=== PATIENT | female | born 1970 | race Caucasian/White ===

== ENCOUNTER → 2023-11-13 | Outpatient (CLI) | payer OTHER ==
[~2023-11-13] MED LIST: EQL50TAB2 PO; OXYC1TAB23 PO; TELM1TAB33 PO; VITA100093 PO; VITMTA PO
== END ==
LOC: M SOG 07:54
PROVIDERS: ATTEND Physician Assistant
DX: M79.661 Pain in right lower leg (principal); S82.844A Nondisplaced bimalleolar fracture of right lower leg, initial encounter for closed fracture; X58.XXXA Exposure to other specified factors, initial encounter; Y92.9 Unspecified place or not applicable

== ENCOUNTER 2023-11-16 10:47 | Day surgery (SDC) | payer OTHER ==
[~2023-11-16] VITALS: Ht 162.6 cm; Wt 65.8 kg
[~2023-11-16 10:47] MED LIST changes: +ceFAZolin SOD 2 GM in IV 1 EA IV ONE
[2023-11-16] MEDS ORDERED: LR 1,000 ML IV SCH ×2 (11:00→17:15)
[2023-11-16] MEDS ORDERED: fentaNYL 100 MCG/2 ML INJECTION As Ordered ONE ×2 (13:14→16:23)
[2023-11-16] MEDS ORDERED: SUGAMMADEX SODIUM 500 MG/5 ML VIAL (BRIDION) As Ordered ONE (13:15)
[2023-11-16] MEDS ORDERED: propofoL 200 MG/20 ML VIAL As Ordered ONE (13:15)
[2023-11-16] MEDS ORDERED: KETOROLAC 60MG 2ML VIAL As Ordered ONE (13:15)
[2023-11-16] MEDS ORDERED: ONDANSETRON 4MG 2ML VIAL As Ordered ONE (13:15)
[2023-11-16] MEDS ORDERED: MIDAZOLAM INJ 2MG/2ML VIAL As Ordered ONE (13:15)
[2023-11-16] MEDS ORDERED: LIDOCAINE 2% 100MG/5ML SDV (FOR ANES.) As Ordered ONE (13:15)
[2023-11-16] MEDS ORDERED: ROCURONIUM BROMIDE 50MG/5ML VIAL As Ordered ONE (13:15)
[2023-11-16] MEDS ORDERED: LIDOCAINE 1% SDV 5ML VIAL PN ONE (13:40)
[2023-11-16] MEDS ORDERED: EPINEPHrine INJ 1 MG/ML 1ML AMP PN ONE (13:40)
[2023-11-16] MEDS ORDERED: ROPIvacaine 0.5% 30ML VIAL PN ONE (13:40)
[2023-11-16] MEDS: MIDAZOLAM INJ 2MG/2ML VIAL IV PRN ×2 (13:55→13:56)
[2023-11-16] MEDS: fentaNYL 100 MCG/2 ML INJECTION IV PRN ×2 (13:56→14:00)
[2023-11-16] MEDS ORDERED: GLYCOPYRROLATE INJ 0.2 MG/ML 2 ML VIAL As Ordered ONE (15:06)
[2023-11-16] MEDS ORDERED: dexmedeTOMIDine (4MCG/ML)200MCG/50ML BTL (PRECEDEX) As Ordered ONE (16:15)
[2023-11-16] MEDS ORDERED: BACITRACIN OINTMENT 30GM TUBE As Ordered ONE (16:42)
[2023-11-16] MEDS ORDERED: ONDANSETRON 4MG 2ML VIAL IV PRN (17:15)
[2023-11-16] MEDS ORDERED: fentaNYL 100 MCG/2 ML INJECTION IV PRN (17:15)
[2023-11-16] MEDS ORDERED: oxyCODONE 5MG TAB PO PRN (17:15)
[2023-11-16] MEDS: HYDROMORPHONE HCL 0.5 MG/ 0.5 ML SYRINGE IV PRN ×4 (17:25→17:51)
[2023-11-16 18:50] VITALS: BP 141/70; TEMP 98; O2SAT 100
== END 2023-11-16 19:14 | disposition home or self-care (01) ==
LOC: M SDC 10:47
PROVIDERS: ATTEND Orthopaedic Surgery Hand Surgery
DX: S82.841A Displaced bimalleolar fracture of right lower leg, initial encounter for closed fracture (principal); X58.XXXA Exposure to other specified factors, initial encounter; Y92.89 Other specified places as the place of occurrence of the external cause; Y93.9 Activity, unspecified; Y99.9 Unspecified external cause status
CPT/HCPCS: 27814; 76000; 93005; C1713; J1100; J1170; J1885; J2250; J2405; J3010

== ENCOUNTER → 2023-11-26 | Outpatient (CLI) | payer OTHER ==
[~2023-11-26] MED LIST changes: -ceFAZolin SOD 2 GM in IV 1 EA IV ONE
== END ==
LOC: M SOG 08:11
PROVIDERS: ATTEND Physician Assistant
DX: S82.841A Displaced bimalleolar fracture of right lower leg, initial encounter for closed fracture (principal); X58.XXXA Exposure to other specified factors, initial encounter; Y92.9 Unspecified place or not applicable

== ENCOUNTER → 2023-12-28 | Outpatient (CLI) | payer OTHER | LOC: M SOG 07:56 | PROVIDERS: ATTEND Physician Assistant | DX: S82.841D Displaced bimalleolar fracture of right lower leg, subsequent encounter for closed fracture with routine healing (principal) ==

== ENCOUNTER → 2024-02-08 | Outpatient (CLI) | payer OTHER | LOC: M SOG 08:36 | PROVIDERS: ATTEND Physician Assistant | DX: S82.841D Displaced bimalleolar fracture of right lower leg, subsequent encounter for closed fracture with routine healing (principal); Z96.661 Presence of right artificial ankle joint ==

== ENCOUNTER 2024-07-02 14:59 | Emergency (ER) | payer OTHER ==
[~2024-07-02] VITALS: Ht 162.6 cm; Wt 68.1 kg
[2024-07-02] MEDS ORDERED: HYDR-3363 (15:13)
[2024-07-02 16:55] LABS: BASO # 0.1 10^3/uL (0.0-0.2); BASO % 1.1 % (0.0-1.0); EOS # 0.2 10^3/uL (0.0-0.5); HEMATOCRIT 40.7 % (36.0-47.0); HEMOGLOBIN 14.3 g/dl (12.0-15.5); LYMPH # 1.9 10^3/uL (1.5-5.0); MEAN CORPUSCULAR HEMOGLOBIN 30.3 pg (27.0-33.0); MEAN CORPUSCULAR HGB CONC 35.1 g/dl (32.0-36.5); MEAN CORPUSCULAR VOLUME 86.2 fl (80.0-96.0); MONO # 0.5 10^3/uL (0.0-0.8); MONO % 6.6 % (2.0-8.0); NEUTROPHILS # 4.5 10^3/uL (1.5-8.5); NEUTROPHILS % 61.7 % (36.0-66.0); PLATELET COUNT, AUTOMATED 224 10^3/uL (150-450); RED BLOOD COUNT 4.72 10^6/uL (4.00-5.40); WHITE BLOOD COUNT 7.3 10^3/uL (4.0-10.0)
[2024-07-02 17:16] LABS: ALBUMIN 4.3 G/DL (3.2-5.2); ALKALINE PHOSPHATASE 95 U/L (46-116); ALT/SGPT 32 U/L (7.0-40); AST/SGOT 27 U/L (<34); BILIRUBIN,DIRECT 0.2 MG/DL (<0.4); BILIRUBIN,TOTAL 0.9 MG/DL (0.3-1.2); BLOOD UREA NITROGEN 20 MG/DL (9-23); CALCIUM LEVEL 9.1 MG/DL (8.5-10.1); CARBON DIOXIDE LEVEL 28 MMOL/L (20-31); CHLORIDE LEVEL 105 MMOL/L (98-107); CK-MB VALUE MASS < 1.0 NG/ML (<3.6); CPK CREATINE PHOSPHOKINASE 73 U/L (34-145); CREATININE FOR GFR 0.86 MG/DL (0.55-1.30); GLOMERULAR FILTRATION RATE > 60.0 (>51); GLUCOSE, FASTING 95 MG/DL (60-100); MB/CK RELATIVE INDEX 1.36 (< OR =4); POTASSIUM SERUM 3.9 MMOL/L (3.5-5.1); SODIUM LEVEL 137 MMOL/L (136-145); TOTAL PROTEIN 7.2 G/DL (5.7-8.2)
[2024-07-02] MEDS ORDERED: ISOVUE-370 76% 100ML VIAL As Ordered ONE (17:53)
[2024-07-02] MEDS: NS 1,000 ML IV ONE (17:58)
[2024-07-02 20:56] VITALS: TEMP 97.2; O2SAT 98
[2024-07-02 20:59] VITALS: BP 158/98
== END 2024-07-02 21:00 | disposition home or self-care (01) ==
LOC: M ED 14:59
DX: I10 Essential (primary) hypertension (principal); F41.9 Anxiety disorder, unspecified; Z88.2 Allergy status to sulfonamides; Z88.5 Allergy status to narcotic agent; Z85.3 Personal history of malignant neoplasm of breast; Z79.899 Other long term (current) drug therapy
CPT/HCPCS: 36415; 71275; 80048; 80076; 82550; 82553; 84484; 85025; 93005; 96360; 96361; 99284; Q9967